=== PATIENT | male | born 2000 | race Two or more races ===

== ENCOUNTER 2025-07-16 12:08 | Emergency (ER) | payer MEDICAID, SELFPAY ==
--- NOTE | 2025-07-16 12:32 | XR_ITS ---
Examination: CT brain head without contrast. 2-D sagittal coronal reconstructions Date and time of exam July 16, 2025, 12:48 PM INDICATION: Headache CTDI: vol (mGy):52.0 DLP: (mGycm): 1064 COMPARISON: 02/27/2023 Technique: Multiple CT axial sections of the brain have been obtained, 5 mm slice thickness. Contrast has not been administered. 2-D sagittal, coronal reconstructions have been obtained Low dose protocols were performed. One or more of the following dose reduction techniques were used; automated exposure control, adjustment of the mA and/or KV according to patient size, use of iterative reconstruction technique. Findings: No significant ventricular enlargement. Intra-axial or extra-axial hemorrhage density is not seen. No mass effect or midline shift Basal cisterns are not remarkable. Fourth ventricle is midline. Cranial vault intact. Impression: Negative for acute hemorrhage, mass effect or midline shift
--- NOTE | 2025-07-16 12:33 | EDNOTE_ITS ---
ED General RME/HPI General Chief complaint: Headache Stated complaint: CONFUSED AT WORK, HEADACHE, FACE/HANDS NUMB Time Seen by Provider: 07/16/25 12:32 Arrival date/time: 07/16/25 12:08 CC: Sudden headache onset HPI onset at 10 AM, some in the right side of the face now over to the left side patient states he has trouble focusing denies blurred vision denies loss of consciousness altered level of consciousness nausea vomiting admits to a history of anxiety. No OTC medicines taken. At the time of exam the patient is awake alert [place] nontoxic-appearing not in any acute distress with stable vital signs. Related Data Previous Rx's ?Medication ?Instructions ?Recorded sumatriptan succinate 50 mg tablet 50 mg PO Q2H PRN mi graine headache 09/29/18 #7 tabs Allergies Allergy/AdvReac Type Severity Reaction Status Date / Time No Known Allergies Allergy Verified 07/16/25 12:09 Review of Systems Review of Systems Narrative Review of Systems: GEN: No fever, no chills, no weight loss EYES: No discharge, no visual changes, no pain HEENT: No ear pain, no congestion, no sore throat PULM: No shortness of breath, no cough, no congestion CV: No chest pain, no dyspnea on exertion, no palpitations GI: No nausea, no vomiting, no diarrhea, no pain, no constipation : No frequency, no urgency, no dysuria MUSC/SKEL: No joint pain, no back pain SKIN: No rash PSYCH: No hallucinations, no depression HEME/LYMPH: No easy bleeding or bruising tendencies NEURO: No weakness, + headache Past Medical History Past Medical History CARDIAC: Negative Congestive Heart Failure RESPIRATORY: Negative Chronic Obstructive Pulmonary Disease (COPD) GENITOURINARY: Negative Renal Disease ENDOCRINE: Negative Diabetes Mellitus Type 1 or Diabetes Mellitus Type 2 Social History SMOKING STATUS: Never smoker ED Exam Narrative Physical exam: [General: Not in any acute distress Head normocephalic HEENT: Within acceptable limits Neck is supple nontender Chest equal chest rise nontender to palpation Respiratory: Clear to auscultation no wheezes crackles or rubs CV: Rate rhythm is regular no murmurs rubs or clicks Abdomen is dsoft nontender no masses positive bowel sounds all 4 quadrants Back: No CVA tenderness no spinous process tenderness from cervical spine thoracic and lumbar spine Skin: Intact no petechiae rash induration ulceration or crepitus Extremities: Moving all extremity against resistance cap refill less than 2 seconds neurosensory intact Neuro: Awake alert oriented x3 Glascow coma 15 no focal deficits], cranial nerves II through XII are grossly intact. Course Course Course Narrative: Patient states the headache is traversed from 1 side to the other he has no diplopia cranial nerves are intact, I suspect this is more anxiety than anything else patient will be discharged home. Quality Measures none Orders Category Date Time Status CT head/brain wo con Stat Exams 07/16/25 12:32 Completed Acetaminophen Tab [Tylenol Tab] Med 07/16/25 12:32 Discontinued 650 mg PO X1 ONE Vital Signs Vital signs: Vital Signs Temperature 98.8 F 07/16/25 12:35 Pulse Rate 97 07/16/25 12:35 Respiratory Rate 18 07/16/25 12:35 Blood Pressure 141/86 H 07/16/25 12:35 Pulse Oximetry (%) 98 07/16/25 12:35 Oxygen Delivery Method Room Air 07/16/25 12:35 Discharge Plan Plan Patient Disposition: HOME (Self Care) Patient condition on transfer: Stable Prescriptions/Referrals Prescriptions/Med Rec: No Action sumatriptan succinate 50 mg tablet 50 mg PO Q2H PRN (Reason: migraine headache) Qty: 7 0RF Rx Instructions: until response; not to exceed 4 doses in a 24 hour period Referrals: Amilcar Ortiz MD [Physician] - In 1 week No Primary/Family,Physician [Primary Care Provider] - In 1 week Problem List Clinical Impression: Headache, Anxiety disorder Patient/Caregiver Discharge Instructions Education Materials: Self-Care for Headaches, ED Anxiety Reaction Additional Instructions: CAT scan of your head is negative, headache is most likely all anxiety driven follow-up with your primary care provider or your antianxiety medicine if there is worsening of symptoms return the emergency room immediately for further evaluation. Print Language: Chinese Stand Alone Forms: Guillermina Award Info., Work/School Release, Patient Portal Info Letter IGGY/JC Supervising Physician IGGY/JC Supervising Physician: Quentin Nielsen ENP [facility] Clinical Information Provided by patient Medical Records Reviewed [facility] Meds/Rx Considered, not Ordered None Labs/Rad/Tests considered, not Ordered None EKG EKG not done Lab Interpretation Labs: none Imaging Provider imaging interpretation(s): CT of the head is interpreted by me read by radiology as negative for any acute finding Medication Administration(s) Medication Administration History Discontinued Medications Acetaminophen (Acetaminophen 325 Mg Tablet) 650 mg PO X1 ONE Stop: 07/16/25 12:33 Last Admin: 07/16/25 12:52 Dose: 650 mg Documented By: MISAEL
[2025-07-16 12:35] VITALS: BP 141/86; PULSE 97; RESP 18; TEMP 37.1; O2SAT 98; BMI 32.9
[2025-07-16] MEDS: ACETAMINOPHEN 325 MG TABLET 650 MG PO (12:52)
[2025-07-16 14:24] VITALS: BP 143/84; PULSE 84; RESP 20; TEMP 36.8; O2SAT 97
[2025-07-16 14:25] VITALS: BP 143/84; PULSE 84; RESP 20; TEMP 36.8; O2SAT 97
== END 2025-07-16 14:25 | disposition home or self-care (01) ==
PROVIDERS: Emergency Provider Emergency Medicine
DX: F41.9 Anxiety disorder, unspecified (principal); R51.9 Headache, unspecified
CPT/HCPCS: 70450; 99283; A9270

== ENCOUNTER → 2025-10-25 | Outpatient (CLI) | payer MEDICAID, SELFPAY ==
--- NOTE | 2025-10-25 12:30 | XR_ITS ---
Examination: MRI brain without intravenous contrast. Date and time of exam: October 25, 2025, 1300 hours INDICATIONS: Headaches 20 years Technique: Multiple axial and sagittal images of the brain obtained. Siemens high-resolution 1.5 Areli short bore scanners utilized. Sagittal sections, T1-weighted, TR 500, TE 14, are performed. Axial sections proton-density and T2-weighted have been obtained. Inversion recovery axial images, TR 9, 260, TE 111, TI 2500. Diffusion weighted images, axial sections, TR 4800, TE 128, B value 1000 Axial sections, ADC map, TR 4800, TE 128 Findings: Enlargement of the sella turcica is not present. The optic chiasm and infundibular are not remarkable. Prepontine and interpeduncular cisterns are not enlarged. There is no localized enlargement of the medulla or omar. Fourth ventricle and cerebellar tonsils appear normal in position. No subacute area of hemorrhage density is seen. Mass in the cerebellopontine angle region is not evident. Globes symmetrical. Orbital musculature including medial lateral rectus muscles do not exhibit abnormality. Diffusion-weighted images demonstrate no focus of restricted diffusion. Increased white matter signal not seen Mass effect upon the ventricular system is not identified. Impression: Negative for acute hemorrhage mass effect or midline shift No acute infarct No MR findings diagnostic for demyelinating disease Chronic pansinusitis
== END | disposition home or self-care (01) ==
PROVIDERS: PCP Nurse Practitioner; Referring Provider Nurse Practitioner; Visit Provider Nurse Practitioner
DX: J32.4 Chronic pansinusitis (principal)
CPT/HCPCS: 70551